=== PATIENT | male | born 1940 | race Hispanic/Latino ===

== ENCOUNTER 2024-07-01 09:54 | Inpatient (IN) | payer MEDICARE ==
[~2024-07-01] VITALS: Ht 172.7 cm; Wt 79.8 kg
[2024-07-01] MEDS: [UNRECOGNIZED DRUG - OTHER] IVPB ONE (06:00)
[2024-07-01] MEDS: CEFAZOLIN SODIUM IVPB ONE (06:00)
[2024-07-01 10:19] LABS: BASOPHILS # (AUTO) 0.02 K/uL (0.00-0.20); BASOPHILS % (AUTO) 0.2 % (0.0-5.0); EOSINOPHILS # (AUTO) 0.06 K/uL (0.00-0.70); EOSINOPHILS % (AUTO) 0.7 % (0.0-8.0); HEMATOCRIT 32.9 % (42-54); IMMATURE GRANULOCYTE ABSOLUTE 0.04 K/uL (0-1); LYMPHOCYTES # (AUTO) 1.7 K/uL (1.0-4.8); LYMPHOCYTES % (AUTO) 20.7 % (21.0-51.0); MEAN CORPUSCULAR HEMOGLOBIN 32.6 pg (27.0-33.0); MEAN CORPUSCULAR HGB CONC 31.6 g/dL (32.0-36.0); MEAN CORPUSCULAR VOLUME 103.1 fL (79-99); MONOCYTES # (AUTO) 0.9 K/uL (0.1-1.0); MONOCYTES % (AUTO) 11.4 % (3.0-13.0); NEUTROPHILS # (AUTO) 5.4 K/uL (1.8-7.7); NEUTROPHILS % (AUTO) 66.5 % (40.0-77.0); PLATELET COUNT (AUTO) 159 K/uL (130-400); RED BLOOD CELL COUNT(AUTO) 3.19 MIL/uL (4.50-6.20); RED CELL DISTRIBUTION WIDTH 16.2 % (11.0-15.5); WHITE BLOOD COUNT (AUTO) 8.1 K/uL (4.8-10.8)
[2024-07-01 10:31] LABS: INR 1.15 (0.85-1.15); PROTHROMBIN TIME 12.3 SEC (9.6-11.6)
[2024-07-01 10:33] LABS: PARTIAL THROMBOPLASTIN TIME 25.1 SEC (26.3-35.5)
[2024-07-01 11:00] LABS: B-TYPE NATRIURETIC PEPTIDE 2050 pg/mL (0-100)
[2024-07-01 11:18] LABS: APPEARANCE,URINE CLEAR (CLEAR); BILIRUBIN,URINE NEGATIVE (NEGATIVE); COLOR,URINE YELLOW (YELLOW); GLUCOSE, URINE (UA) NEGATIVE (NEGATIVE); KETONES,URINE NEGATIVE (NEGATIVE); LEUKOCYTE ESTERASE ,URINE NEGATIVE Leu/uL (NEGATIVE); NITRATE,URINE NEGATIVE (NEGATIVE); OCCULT BLOOD,URINE NEGATIVE (NEGATIVE); PH,URINE 5.5 (5.0-8.0); PROTEIN,URINE 100 mg/dL (NEGATIVE); UROBILINOGEN,URINE 0.2 mg/dL (0.2-1.0)
[2024-07-01 11:26] LABS: ADD UA MICROSCOPIC YES
[2024-07-01] MEDS ORDERED: PoTASSium chloRIDE 10MEQ SR 10 MEQ/TAB TAB.SR.24H PO PRN (11:30)
[2024-07-01] MEDS ORDERED: DEXTROSE 50%-WATER 50 ML DISP.SYRIN IV PRN (11:30)
[2024-07-01] MEDS: INSULIN humuLIN R 100 UNIT/ML 3ML SQ SCH (11:30)
[2024-07-01] MEDS ORDERED: ondanSETRON 4MG INJ IVP PRN (11:30)
[2024-07-01] MEDS ORDERED: GLUCAGON 1MG KIT 1 MG ML IM PRN (11:30)
[2024-07-01] MEDS ORDERED: morPHINE 2 MG SYG IVP PRN (11:30)
[2024-07-01] MEDS ORDERED: PoTASSium chl 10% ELIXIR 20MEQ 20 MEQ/15 ML UDCUP PO PRN (11:30)
[2024-07-01] MEDS ORDERED: acetaMINOPHEN 325 MG TAB PO PRN ×2 (11:30)
[2024-07-01] MEDS ORDERED: MAGNESIUM 2GM PREMIX 50ML 50 ML IV PRN (11:30)
[2024-07-01] MEDS ORDERED: PoTASSium chloRIDE 10MEQ/100ML 100 ML IV PRN (11:30)
[2024-07-01 12:21] LABS: MUCUS,URINE RARE LPF (None Seen)
[2024-07-01 12:25] LABS: HEMOGLOBIN A1C 5.4 % (4.0-6.0)
[2024-07-01 12:26] LABS: CREATININE 2.4 mg/dL (0.5-1.3); POTASSIUM 3.8 mmol/L (3.5-5.1)
[2024-07-01] MEDS ORDERED: FERS325 PO (14:41)
[2024-07-01] MEDS ORDERED: NIAC500C9 PO (14:41)
[2024-07-01] MEDS ORDERED: LISI10TA24 PO (14:41)
[2024-07-01] MEDS ORDERED: SIMV-43 PO (14:41)
[2024-07-01] MEDS ORDERED: LINA5TAB PO (14:41)
[2024-07-01] MEDS ORDERED: FURO20TA4 PO (14:41)
[2024-07-01] MEDS ORDERED: LISI2.5T13 PO (14:41)
[2024-07-01] MEDS ORDERED: CHOL200012 PO (14:41)
[2024-07-01] MEDS ORDERED: DOCU100C33 PO (14:41)
[2024-07-01] MEDS ORDERED: FOLI0.8T22 PO (14:41)
[2024-07-01] MEDS ORDERED: MV-M1CAP24 PO (14:41)
[2024-07-01] MEDS ORDERED: ASCO500T20 PO (14:41)
[2024-07-01] MEDS ORDERED: MECO10005 PO (14:41)
[2024-07-01] MEDS ORDERED: FINE10TA PO (14:41)
[2024-07-01] MEDS: VANCOMYCIN KIT 1 GM/250 ML IV.KIT IV ONE (16:00)
[2024-07-01] MEDS: hydrALAZine 20MG/ML VIAL IV PRN (18:17)
[2024-07-01] MEDS ORDERED: LISINOPRIL 2.5 MG TABLET PO SCH ×2 (21:00)
[2024-07-01] MEDS: LISINOPRIL 2.5 MG TABLET PO SCH (21:45)
[2024-07-01] MEDS: CYANOCOBALAMIN (VITAMIN B-12) 1,000 MCG TABLET PO SCH (21:45)
[2024-07-01] MEDS: hydrALAZine 25MG TABLET PO SCH (21:46)
[2024-07-01] MEDS: atorVAStatin 40 MG TABLET PO SCH (21:46)
[2024-07-01] MEDS: simVASTatin 20 MG TABLET PO SCH (21:47)
[2024-07-01 22:00] VITALS: O2SAT 97
[2024-07-01 22:50] VITALS: BP 178/65; PULSE 43; RESP 16; TEMP 98.6
[2024-07-01 23:00] VITALS: BP 146/72; PULSE 40; RESP 16; TEMP 98.6
[2024-07-01] MEDS: NIACIN 500 MG SRTAB PO SCH (23:18)
[2024-07-02] VITALS (7 sets, daily range): BP systolic 124–195; BP diastolic 55–79; PULSE 40–97; RESP 16–18; TEMP 97.8–98.5; O2SAT 97
[2024-07-02 04:35] LABS: BASOPHILS # (AUTO) 0.03 K/uL (0.00-0.20); BASOPHILS % (AUTO) 0.3 % (0.0-5.0); EOSINOPHILS # (AUTO) 0.09 K/uL (0.00-0.70); EOSINOPHILS % (AUTO) 0.9 % (0.0-8.0); HEMATOCRIT 28.9 % (42-54); IMMATURE GRANULOCYTE ABSOLUTE 0.04 K/uL (0-1); LYMPHOCYTES % (AUTO) 20.3 % (21.0-51.0); MEAN CORPUSCULAR HEMOGLOBIN 31.7 pg (27.0-33.0); MEAN CORPUSCULAR HGB CONC 31.8 g/dL (32.0-36.0); MEAN CORPUSCULAR VOLUME 99.7 fL (79-99); MONOCYTES % (AUTO) 10.8 % (3.0-13.0); NEUTROPHILS # (AUTO) 6.4 K/uL (1.8-7.7); NEUTROPHILS % (AUTO) 67.3 % (40.0-77.0); PLATELET COUNT (AUTO) 155 K/uL (130-400); RED CELL DISTRIBUTION WIDTH 16.3 % (11.0-15.5); WHITE BLOOD COUNT (AUTO) 9.6 K/uL (4.8-10.8)
[2024-07-02 04:46] LABS: INR 1.24 (0.85-1.15); PROTHROMBIN TIME 13.2 SEC (9.6-11.6)
[2024-07-02 04:47] LABS: PARTIAL THROMBOPLASTIN TIME 27.4 SEC (26.3-35.5)
[2024-07-02 05:00] LABS: ALBUMIN 2.5 g/dL (3.5-5.0); BILIRUBIN,TOTAL 0.4 mg/dL (0.2-1.0); CREATININE 2.6 mg/dL (0.5-1.3); POTASSIUM 3.7 mmol/L (3.5-5.1); TOTAL PROTEIN, SERUM 5.9 g/dL (6.0-8.3)
[2024-07-02 05:19] LABS: B-TYPE NATRIURETIC PEPTIDE 1470 pg/mL (0-100)
[2024-07-02] MEDS: VANCOMYCIN 1G/250ML KIT 250 ML IV ONE (06:00)
[2024-07-02] MEDS: ceFAZolin SODIUM 1 GM VIAL IVPB ONE (06:00)
[2024-07-02] MEDS: ZEA PO SCH (09:00)
[2024-07-02] MEDS: EPA PO SCH (09:00)
[2024-07-02] MEDS ORDERED: LISINOPRIL 10 MG TABLET PO SCH (09:00)
[2024-07-02] MEDS: [UNRECOGNIZED DRUG - OTHER] PO SCH (09:00)
[2024-07-02] MEDS: FINERENONE 10 MG PO SCH (09:00)
[2024-07-02] MEDS: MV MN PO SCH (09:00)
[2024-07-02] MEDS: FISH PO SCH (09:00)
[2024-07-02] MEDS: DHA PO SCH (09:00)
[2024-07-02] MEDS: LUT PO SCH (09:00)
[2024-07-02] MEDS: LISINOPRIL 10 MG TABLET PO SCH (10:24)
[2024-07-02] MEDS: Vitamin B Complex/Vit C/Folic Acid PO SCH (10:24)
[2024-07-02] MEDS: furoSEMIDE 40MG VIAL IV SCH (10:25)
[2024-07-02] MEDS ORDERED: FENTanyl CITRate PF 50 MCG/1 ML 2ML VIAL ONE (14:23)
[2024-07-02] MEDS ORDERED: LIDOCAINE HCL 1% MDV 50ML VIAL ONE (14:23)
[2024-07-02] MEDS ORDERED: MIDAZOLAM HCL 1 MG/ML 2ML VIAL ONE (14:24)
[2024-07-02] MEDS ORDERED: BUPIvacaine/PF 0.25% 30ML VIAL IJ ONE (14:24)
[2024-07-02] MEDS ORDERED: ceFAZolin SODIUM 1 GM VIAL ONE (14:41)
[2024-07-02] MEDS ORDERED: IODIXANOL 320 MG/ML 100 ML VIAL ONE (14:45)
[2024-07-02] MEDS ORDERED: hydrALAZine 20MG/ML VIAL ONE (15:13)
[2024-07-02] MEDS: LISINOPRIL 5 MG TABLET PO SCH (20:45)
[2024-07-02] MEDS: MINOCYCLINE HCL 50 MG CAP PO SCH (20:45)
[2024-07-03] VITALS (9 sets, daily range): BP systolic 133–188; BP diastolic 53–77; PULSE 66–78; RESP 17–20; TEMP 97.9–99; O2SAT 96
[2024-07-03] MEDS ORDERED: MINO50 PO (08:16)
[2024-07-04] MEDS ORDERED: Vitamin B Complex/Vit C/Folic Acid PO SCH (09:00)
== END 2024-07-03 17:30 | disposition home or self-care (01) | DRG 243 ==
LOC: EDH 09:54 → EDHIP 10:44 → 2DH 22:00
PROVIDERS: ADMIT Hospitalist; ATTEND Hospitalist
PROC: 0JH606Z Insertion of Pacemaker, Dual Chamber into Chest Subcutaneous Tissue and Fascia, Open Approach (ICD-10-PCS; principal; 2024-07-02)
PROC: 02H63JZ Insertion of Pacemaker Lead into Right Atrium, Percutaneous Approach (ICD-10-PCS; 2024-07-02)
PROC: 02HK3JZ Insertion of Pacemaker Lead into Right Ventricle, Percutaneous Approach (ICD-10-PCS; 2024-07-02)
DX: I44.2 Atrioventricular block, complete (principal); I13.0 Hypertensive heart and chronic kidney disease with heart failure and stage 1 through stage 4 chronic kidney disease, or unspecified chronic kidney disease; I50.32 Chronic diastolic (congestive) heart failure; E11.22 Type 2 diabetes mellitus with diabetic chronic kidney disease; E78.00 Pure hypercholesterolemia, unspecified; I45.10 Unspecified right bundle-branch block; F10.10 Alcohol abuse, uncomplicated; N18.30 Chronic kidney disease, stage 3 unspecified; E66.9 Obesity, unspecified; Z86.73 Personal history of transient ischemic attack (TIA), and cerebral infarction without residual deficits; Z87.891 Personal history of nicotine dependence; Z83.3 Family history of diabetes mellitus; Z68.26 Body mass index [BMI] 26.0-26.9, adult
CPT/HCPCS: 33208; 36415; 71045; 80048; 80053; 80061; 81001; 82550; 82948; 83036; 83735; 83880; 84484; 85025; 85610; 85730; 93005; 93306; 93356; 99156; 99157; 99291; C1785; C1898; G0378; J0360; J0690; J1940; J2250; J3010; J3370; J3490; Q9967; C1894; J0665